=== PATIENT | female | born 1965 | race Caucasian/White ===

== ENCOUNTER 2020-07-21 23:43 | Emergency (ER) | payer MEDICAID ==
[~2020-07-21] VITALS: Ht 165.1 cm; Wt 68.2 kg
[2020-07-21] MEDS ORDERED: normal saline 1000ML IV soln IVB ONE (23:50)
[2020-07-21] MEDS ORDERED: methylPREDNISolone sod succ 125mg/2ml vial IV ONE (23:50)
[2020-07-21] MEDS ORDERED: albuterol 2.5 MG/3 ML nebule CONTNEB PRN (23:50)
[2020-07-21] MEDS ORDERED: methylPREDNISolone sod succ 125mg/2ml vial ONE (23:56)
[2020-07-22 00:04] LABS: BASOPHILS # (AUTO) 0.1 X10'3 (0-0.2); EOSINOPHILS # (AUTO) 0.3 X10'3 (0-0.9); EOSINOPHILS % (AUTO) 2.7 % (0-6); HEMATOCRIT 45.9 % (35.0-45.0); HEMOGLOBIN 15.8 g/dl (12.0-16.0); LYMPHOCYTES # (AUTO) 2.4 X10'3 (1.1-4.8); LYMPHOCYTES % (AUTO) 24.9 % (21-51); MEAN CORPUSCULAR HEMOGLOBIN 32.8 PG (27.0-31.0); MEAN CORPUSCULAR HGB CONC 34.5 g/dL (33.0-36.5); MEAN CORPUSCULAR VOLUME 95.3 FL (78-98); MEAN PLATELET VOLUME 7.2 FL (7.4-10.4); MONOCYTES # (AUTO) 0.6 X10'3 (0-0.9); MONOCYTES % (AUTO) 6.1 % (2-12); NEUTROPHILS # (AUTO) 6.4 X10'3 (1.8-7.7); NEUTROPHILS % (AUTO) 65.3 % (42-75); PLATELET COUNT 334 X10'3 (140-440); RED BLOOD COUNT 4.81 X10'6 (4.20-5.60); RED CELL DISTRIBUTION WIDTH 12.6 % (11.5-14.5); WHITE BLOOD COUNT 9.7 X10'3 (4.5-11.0)
[2020-07-22 00:12] LABS: PARTIAL THROMBOPLASTIN TIME 26 SECONDS (22-32)
[2020-07-22 00:16] LABS: ALANINE AMINOTRANSFERASE 37 U/L (12-78); ALBUMIN 4.1 G/DL (3.4-5.0); ALKALINE PHOSPHATASE 104 IU/L (46-116); ANION GAP 12 (8-16); ASPARTATE AMINO TRANSFERASE 35 U/L (10-37); BILIRUBIN,TOTAL 0.4 MG/DL (0.1-1.0); BLOOD UREA NITROGEN 15 MG/DL (7-18); BUN/CREATININE RATIO 18.5 (6.6-38.0); CALCIUM 8.4 MG/DL (8.5-10.1); CHLORIDE 103 MMOL/L (99-107); CREATININE 0.81 MG/DL (0.40-0.90); GLUCOSE 106 MG/DL (70-104); POTASSIUM 3.8 MMOL/L (3.5-5.1); SODIUM 141 MMOL/L (135-145); TOTAL CARBON DIOXIDE 25.8 MMOL/L (24-32); TOTAL PROTEIN 8.3 G/DL (6.4-8.2); eGFR 73 ML/MIN
[2020-07-22] MEDS ORDERED: ALBU6.7H9 INH (00:54)
[2020-07-22] MEDS ORDERED: PRED20TA PO (00:54)
[2020-07-22] MEDS ORDERED: CEPH-571 PO (00:54)
[2020-07-22] MEDS ORDERED: CefTRIAXone/D5W-Rocephin 1gm 50 ML IV ONE (00:55)
[2020-07-22 01:39] VITALS: BP 113/65
== END 2020-07-22 01:41 | disposition home or self-care (01) ==
LOC: ER 23:44
DX: J44.1 Chronic obstructive pulmonary disease with (acute) exacerbation (principal); F17.210 Nicotine dependence, cigarettes, uncomplicated; Z79.899 Other long term (current) drug therapy
CPT/HCPCS: 36415; 71045; 80053; 83605; 84484; 85025; 85610; 85730; 87040; 93005; 94644; 96361; 96374; 99285; J2930; J7030; 94640; 94760